=== PATIENT | male | born 1945 | race Caucasian/White ===

== ENCOUNTER 2016-07-15 14:07 | Emergency (ER) | payer MEDICARE ==
--- NOTE | 2016-07-15 15:23 | ER Document Report ---
ED Medical Screen (RME) - General Chief Complaint: Abdominal Pain Stated Complaint: LEFT ABDOMINAL PAIN Notes: This 71-year-old male patient brought to emergency room for abdominal pain. He first had onset just after midnight this a.m., family called 911, then declined transport. They gave him a laxative. He seemed to be better for a while, but his pain returned about 1 PM today. While here in the emergency room he had a large bowel movement but that did not seem to change his discomfort. He is complaining of pain in his left upper quadrant abdomen. He did suffer a significant stroke in 2010 and has developed a seizure disorder secondary to that. reports that he does not drink water as often as she would like him to. I have greeted and performed a rapid initial assessment of this patient. A comprehensive ED assessment and evaluation of the patient, analysis of test results and completion of the medical decision making process will be conducted by additional ED providers. TRAVEL OUTSIDE OF THE [place] IN LAST 30 DAYS: No - Related Data Allergies/Adverse Reactions: No Known Allergies Allergy (Verified 07/15/16 14:49) Home Medications: Current Home Medications Amitriptyline HCl [Elavil 10 Mg Tablet] 10 mg PO DAILY 07/15/16 [History] Aspirin [Aspirin EC] 81 mg PO DAILY 07/15/16 [History] Atorvastatin Calcium 40 mg PO DAILY 07/15/16 [History] Baclofen [Baclofen 10 mg Tablet] 10 mg PO BID 07/15/16 [History] Fluoxetine HCl 20 mg PO QAM 07/15/16 [History] Lamotrigine [Lamotrigine ER] 300 mg PO DAILY 07/15/16 [History] Lisinopril 10 mg PO DAILY 07/15/16 [History] Past Medical History - Past Medical History Cardiac Medical History: Reports: Hx Hypercholesterolemia, Hx Hypertension Pulmonary Medical History: Denies: Hx Tuberculosis Neurological Medical History: Reports: Hx Cerebrovascular Accident - 2010 Left MCA infarct, Hx Migraine, Hx Seizures Renal/ Medical History: Denies: Hx Peritoneal Dialysis GI Medical History: Reports: Hx Gastroesophageal Reflux Disease Psychiatric Medical History: Reports: Hx Depression Past Surgical History: Reports: Hx Appendectomy, Hx Orthopedic Surgery - Immunizations Hx Diphtheria, Pertussis, Tetanus Vaccination: Yes Physical Exam - Vital signs Vitals: Temp Pulse Resp BP Pulse Ox 98.4 F 70 18 111/71 100 07/15/16 14:52 07/15/16 14:52 07/15/16 14:52 07/15/16 14:52 07/15/16 14:52 Course - Vital Signs Vital signs: Temp Pulse Resp BP Pulse Ox 98.4 F 70 18 111/71 100 07/15/16 14:52 07/15/16 14:52 07/15/16 14:52 07/15/16 14:52 07/15/16 14:52
[2016-07-15 15:56] LABS: APPEARANCE,URINE CLEAR; BILIRUBIN,URINE NEGATIVE (NEGATIVE); GLUCOSE, URINE NEGATIVE (NEGATIVE); KETONES,URINE NEGATIVE (NEGATIVE); LEUKOCYTE ESTERASE,URINE NEGATIVE (NEGATIVE); NITRITE,URINE NEGATIVE (NEGATIVE); PROTEIN,URINE NEGATIVE (NEGATIVE); URINE SPECIFIC GRAVITY 1.014; UROBILINOGEN,URINE NEGATIVE mg/dL (<2.0)
[2016-07-15 16:19] LABS: ABSOLUTE BASOPHILS # (AUTO) 0.1 10^3/uL (0.0-0.2); ABSOLUTE EOSINOPHILS # (AUTO) 0.2 10^3/uL (0.0-0.6); ABSOLUTE MONOCYTES (AUTO) 1.1 10^3/uL (0.1-1.4); ABSOLUTE NEUT (AUTO) 9.2 10^3/uL (1.7-8.2); EOSINOPHILS % (AUTO) 1.3 % (0-6); HEMATOCRIT 41.3 % (37.9-51.0); HEMOGLOBIN 13.8 g/dL (13.5-17.0); HGB HCT DIFFERENCE 0.1; LYMPHOCYTES % (AUTO) 16.2 % (13-45); MEAN CORPUSCULAR HEMOGLOBIN 32.2 pg (27.0-33.4); MEAN CORPUSCULAR HGB CONC 33.6 g/dL (32.0-36.0); MEAN CORPUSCULAR VOLUME 96 fl (80-97); MONOCYTES % (AUTO) 8.4 % (3-13); RED CELL DISTRIBUTION WIDTH 13.4 % (11.5-14.0); SEGMENTED NEUTROPHILS % (AUTO) 73.1 % (42-78); WHITE BLOOD COUNT 12.6 10^3/uL (4.0-10.5)
--- NOTE | 2016-07-15 16:32 | ER Document Report ---
ED GI/ - General Chief Complaint: Abdominal Pain Stated Complaint: LEFT ABDOMINAL PAIN Mode of Arrival: Ambulatory Information source: Patient, POA - Power of Foot Tender Cannot obtain history due to: Other - Previous CVA TRAVEL OUTSIDE OF THE [place] IN LAST 30 DAYS: No - HPI Notes: 07/15/16 16:29 Patient's here with his at the bedside. The patient has had a prior CVA and is unable to speak due to prior CVA. History is obtained by his . She states that over the last few days he's been holding the left side of his abdomen and she is concerned that he is having pain in this area. He had a bowel movement here with no change in his pain. Said no complaints of chest pain from what she can tell. He had no vomiting. No fever. No change in his urine. And acting normal otherwise. No rashes. No other known complaints. - Related Data Allergies/Adverse Reactions: No Known Allergies Allergy (Verified 07/15/16 14:49) Home Medications: Current Home Medications Amitriptyline HCl [Elavil 10 Mg Tablet] 10 mg PO DAILY 07/15/16 [History] Aspirin [Aspirin EC] 81 mg PO DAILY 07/15/16 [History] Atorvastatin Calcium 40 mg PO DAILY 07/15/16 [History] Baclofen [Baclofen 10 mg Tablet] 10 mg PO BID 07/15/16 [History] Fluoxetine HCl 20 mg PO QAM 07/15/16 [History] Lamotrigine [Lamotrigine ER] 300 mg PO DAILY 07/15/16 [History] Lisinopril 10 mg PO DAILY 07/15/16 [History] Past Medical History - Social History Smoking Status: Unknown if Ever Smoked Family History: Reviewed & Not Pertinent, CVA Patient has suicidal ideation: No Patient has homicidal ideation: No - Past Medical History Cardiac Medical History: Reports: Hx Hypercholesterolemia, Hx Hypertension Pulmonary Medical History: Denies: Hx Tuberculosis Neurological Medical History: Reports: Hx Cerebrovascular Accident - 2011 Left MCA infarct, Hx Migraine, Hx Seizures Renal/ Medical History: Denies: Hx Peritoneal Dialysis GI Medical History: Reports: Hx Gastroesophageal Reflux Disease Psychiatric Medical History: Reports: Hx Depression Past Surgical History: Reports: Hx Appendectomy, Hx Orthopedic Surgery - Immunizations Hx Diphtheria, Pertussis, Tetanus Vaccination: Yes Hx Pneumococcal Vaccination: 04/12/10 Review of Systems - Review of Systems -: Yes ROS unobtainable due to patient's medical condition Physical Exam - Vital signs Vitals: Temp Pulse Resp BP Pulse Ox 98.4 F 70 18 111/71 100 07/15/16 14:52 07/15/16 14:52 07/15/16 14:52 07/15/16 14:52 07/15/16 14:52 - General General appearance: Appears well, Alert - HEENT Head: Normocephalic, Atraumatic Eyes: Normal Conjunctiva: Normal Pupils: PERRL Ears: Normal Mouth/Lips: Normal Mucous membranes: Normal Pharynx: Normal Neck: Normal - Respiratory Respiratory status: No respiratory distress Breath sounds: Normal - Cardiovascular Rhythm: Regular Heart sounds: Normal auscultation Murmur: No - Abdominal Inspection: Normal Distension: No distension Bowel sounds: Normal Tenderness: Nontender Organomegaly: No organomegaly - Back Back: Normal, Nontender - Extremities General upper extremity: Normal inspection, Nontender, Normal color, Normal ROM , Normal temperature General lower extremity: Normal inspection, Nontender, Normal color, Normal ROM , Normal temperature, Normal weight bearing. No: Larissa's sign - Neurological Notes: Treatment prior stroke and right-sided weakness secondary to prior stroke. The patient is noted have aphasia. - Psychological Associated symptoms: Normal affect, Normal mood - Skin Skin Temperature: Warm Skin Moisture: Dry Skin Color: Normal Course - Re-evaluation Re-evalutation: 07/15/16 17:57 Patient is nontoxic appearing with stable vitals. Again the patient's had a prior stroke therefore it is difficult for him to verbalize anything. was concerned these been grabbing the left side of his abdomen when make sure nothing bad was going on. The patient has a benign exam at this time. EKG is unremarkable, troponin is negative, labs are unremarkable, urine shows no sign of infection, chest x-ray normal, CT abdomen and pelvis shows no acute abnormality. This point the patient can be discharged home with instructions to follow-up with his primary care doctor the next stable appointment, sooner if getting worse in anyway. The patient's emergency department workup and current diagnosis were explained to the patient and or family. Follow-up instructions were provided. Medications if prescribed were discussed. Instructions for when to return to the emergency department including specific worrisome symptoms were discussed with the patient and/or family. - Vital Signs Vital signs: Temp Pulse Resp BP Pulse Ox 98.4 F 62 16 109/59 L 98 07/15/16 14:52 07/15/16 17:40 07/15/16 17:40 07/15/16 17:40 07/15/16 17:40 - Laboratory Result Diagrams: 07/15/16 16:10 07/15/16 16:10 Laboratory results interpreted by me: 07/15/16 07/15/16 07/15/16 15:32 16:10 16:10 WBC 12.6 H RBC 4.30 L Absolute Neutrophils 9.2 H Lipase 362.0 H Urine Blood SMALL H - Diagnostic Test Radiology reviewed: Image reviewed, Reports reviewed - Acute abdominal series unremarkable, CT abdomen and pelvis with IV contrast negative. - EKG Interpretation by Me EKG shows normal: Sinus rhythm, Intervals, QRS Complexes, ST-T Waves Rate: Normal When compared to previous EKG there are: No significant change Discharge - Discharge Clinical Impression: Abdominal pain Qualifiers: Abdominal location: unspecified location Qualified Code(s): R10.9 - Unspecified abdominal pain Disposition: HOME, SELF-CARE Instructions: Abdominal Pain ([facility]) Additional Instructions: Follow-up with his doctor for recheck. Follow-up sooner for increased pain, fever, persistent vomiting, or any further concerns.
[2016-07-15 16:33] LABS: ALANINE AMINOTRANSFERASE 31 U/L (21-72); ALBUMIN 3.8 g/dL (3.5-5.0); ALKALINE PHOSPHATASE 83 U/L (38-126); ANION GAP 11 (5-19); ASPARTATE AMINO TRANSFERASE 23 U/L (17-59); BILIRUBIN,DIRECT 0.2 mg/dL (0.0-0.4); BILIRUBIN,TOTAL 0.5 mg/dL (0.2-1.3); BLOOD UREA NITROGEN 18 mg/dL (7-20); CALCIUM 9.3 mg/dL (8.4-10.2); CARBON DIOXIDE 30 mmol/L (22-30); CHLORIDE 103 mmol/L (98-107); CREATININE RESULT 1.08 mg/dL (0.52-1.25); GLUCOSE 88 mg/dL (75-110); POTASSIUM 4.1 mmol/L (3.6-5.0); SODIUM 144.2 mmol/L (137-145); TOTAL PROTEIN 6.5 g/dL (6.3-8.2)
[2016-07-15 17:41] VITALS: BP 109/59
--- NOTE | 2016-07-16 15:41 | EKG REPORT ---
SEVERITY:- OTHERWISE NORMAL ECG - SINUS RHYTHM BORDERLINE LEFT AXIS DEVIATION : Confirmed by: Martha Posey MD 16-Jul-2016 15:40:40
== END 2016-07-15 18:23 | disposition home or self-care (01) ==
LOC: ER 14:07
DX: R10.9 Unspecified abdominal pain (principal); E78.00 Pure hypercholesterolemia, unspecified; I10 Essential (primary) hypertension; K21.9 Gastro-esophageal reflux disease without esophagitis; I69.320 Aphasia following cerebral infarction; I69.351 Hemiplegia and hemiparesis following cerebral infarction affecting right dominant side; Z79.82 Long term (current) use of aspirin
CPT/HCPCS: 36415; 74022; 74177; 80053; 81001; 83605; 83690; 84484; 85025; 93005; 93010; 99284

== ENCOUNTER 2016-07-21 00:25 | Observation (INO) | payer MEDICARE ==
--- NOTE | 2016-07-21 00:54 | ER Document Report ---
ED General - General Stated Complaint: ABDOMINAL DISCOMFORT Time seen by provider: 00:54 Mode of Arrival: Medic Information source: Patient, Relative TRAVEL OUTSIDE OF THE [place] IN LAST 30 DAYS: No - HPI Notes: Patient is a 71-year-old male presents to the emergency department with report of left lower quadrant intermittent abdominal pain is half the last 2 weeks. The patient has a previous history of a CVA 2010 with a dense right hemiparesis and expressive aphasia. The patient was seen previously on 07/15/16 with the same left lower quadrant crampy abdominal pain and had a negative CT scan and otherwise benign blood work. The patient does not drink fluids much, and is prone to constipation. Family and intermittently gives him Dulcolax without much response. There's been no lethargy or fever or vomiting. Patient also reports a headache intermittently, and family is concerned about a another CVA, although they deny any change in his mental status for expressive aphasia over right hemiparesthesias. No skin breakdown. - Related Data Allergies/Adverse Reactions: No Known Allergies Allergy (Verified 07/15/16 14:49) Past Medical History - General Cannot obtain history due to: Other - Expressive aphasia - Social History Smoking Status: Never Smoker Frequency of alcohol use: None Drug Abuse: None Lives with: Family Family History: Reviewed & Not Pertinent, CVA - Past Medical History Cardiac Medical History: Reports: Hx Hypercholesterolemia, Hx Hypertension Pulmonary Medical History: Denies: Hx Tuberculosis Neurological Medical History: Reports: Hx Cerebrovascular Accident - 2010 Left MCA infarct, Hx Migraine, Hx Seizures Renal/ Medical History: Denies: Hx Peritoneal Dialysis GI Medical History: Reports: Hx Gastroesophageal Reflux Disease Psychiatric Medical History: Reports: Hx Depression Past Surgical History: Reports: Hx Appendectomy, Hx Orthopedic Surgery - Immunizations Hx Diphtheria, Pertussis, Tetanus Vaccination: Yes Hx Pneumococcal Vaccination: 04/12/10 Review of Systems - Review of Systems Notes: REVIEW OF SYSTEMS: CONSTITUTIONAL : Denies fever, chills, or sweats. Denies recent illness. EENT: Denies eye, ear, throat, or mouth pain or symptoms. Denies nasal or sinus congestion or discharge. Denies throat, tongue, or mouth swelling or difficulty swallowing. CARDIOVASCULAR: Denies chest pain. Denies palpitations or racing or irregular heart beat. Denies ankle edema. RESPIRATORY: Denies cough, cold, or chest congestion. Denies shortness of breath, difficulty breathing, or wheezing. GASTROINTESTINAL: Denies distention. Denies nausea, vomiting, or diarrhea. Denies blood in vomitus, stools, or per rectum. Denies black, tarry stools. GENITOURINARY: Denies difficulty urinating, painful urination, burning, frequency, blood in urine, or discharge. MUSCULOSKELETAL: Denies back or neck pain or stiffness. Denies joint pain or swelling. SKIN: Denies rash, lesions or sores. HEMATOLOGIC : Denies easy bruising or bleeding. LYMPHATIC: Denies swollen, enlarged glands. NEUROLOGICAL: Denies confusion or altered mental status. Denies passing out or loss of consciousness. Denies dizziness or lightheadedness. Denies new sensory loss, numbness, or tingling. Denies seizures. PSYCHIATRIC: Denies anxiety or stress. Denies depression, suicidal ideation, or homicidal ideation. ALL OTHER SYSTEMS REVIEWED AND. Dictation was performed using [id number] voice recognition software Physical Exam - Vital signs Vitals: Resp Pulse Ox 15 98 07/21/16 02:15 07/21/16 02:15 - Notes Notes: PHYSICAL EXAMINATION: GENERAL: Well-appearing, well-nourished and in no acute distress. HEAD: Atraumatic, normocephalic. Localizes pain occipital region. No erythema. EYES: Pupils equal round and reactive to light, extraocular movements intact, sclera anicteric, conjunctiva are normal. ENT: Nares patent, oropharynx clear without exudates. Moist mucous membranes. NECK: Normal range of motion, supple without lymphadenopathy LUNGS: Breath sounds clear to auscultation bilaterally and equal. No wheezes rales or rhonchi. HEART: Regular rate and rhythm without murmurs ABDOMEN: No guarding, no rebound. No masses appreciated. tender over the midepigastric to left mid abdominal region. Genitourinary exam. Testicles descended and nontender. Patient circumcised is no discharge. Inguinal rings may be minimally open bilaterally, but there is no evidence for incarcerated hernia or any tenderness to that location. Musculoskeletal: Normal range of motion, no pitting or edema. No cyanosis. NEUROLOGICAL: R hemiparesis with aphasia, chronic. PSYCH: Normal mood, normal affect. SKIN: Warm, Dry, normal turgor, no rashes or lesions noted. Course - Re-evaluation Re-evalutation: 07/21/16 02:41 Amylase and lipase elevated. Lipase was 300 on 07/15/16. With continued and worsening pain, the lipase today is greater than 1000. Patient has normal bilirubin and CT scan on 07/15/16 showed no pancreatic inflammation or other abnormality. Patient is a nondrinker. Previously patient had a G-tube after his stroke in 2010. He currently does not have a G-tube. Question medication interaction versus gastritis with secondary pancreatic inflammation. 07/21/16 03:47 Discussion was undertaken with Dr. Peacock, and he agreed to admit the patient for further evaluation and management. Right upper quadrant abdominal ultrasound was ordered. Patient was kept nothing by mouth and basal rate IV fluids were ordered. - Vital Signs Vital signs: Temp Pulse Resp BP Pulse Ox 15 98 07/21/16 02:15 07/21/16 02:15 - Laboratory Result Diagrams: 07/21/16 01:30 07/21/16 01:30 Laboratory results interpreted by me: 07/21/16 07/21/16 07/21/16 01:30 01:30 01:30 RBC 3.97 L Hgb 13.0 L Carbon Dioxide 32 H Amylase 201 H Lipase 1090.1 H Discharge - Discharge Clinical Impression: Abdominal pain Qualifiers: Abdominal location: epigastric Qualified Code(s): R10.13 - Epigastric pain Pancreatitis Qualifiers: Chronicity: acute Pancreatitis type: other Acute pancreatitis complication: unspecified Qualified Code(s): K85.80 - Other acute pancreatitis without necrosis or infection Disposition: ADMITTED INPATIENT Admitting Provider: Hospitalist Unit Admitted: Telemetry Referrals: ZULEIKA AGRAWAL PA-C [Primary Care Provider] - Follow up as needed
[2016-07-21 02:02] LABS: APPEARANCE,URINE CLEAR; BILIRUBIN,URINE NEGATIVE (NEGATIVE); GLUCOSE, URINE NEGATIVE (NEGATIVE); KETONES,URINE NEGATIVE (NEGATIVE); LEUKOCYTE ESTERASE,URINE NEGATIVE (NEGATIVE); NITRITE,URINE NEGATIVE (NEGATIVE); PROTEIN,URINE NEGATIVE (NEGATIVE); URINE SPECIFIC GRAVITY 1.005; UROBILINOGEN,URINE NEGATIVE mg/dL (<2.0)
[2016-07-21 02:04] LABS: ABSOLUTE BASOPHILS # (AUTO) 0.1 10^3/uL (0.0-0.2); ABSOLUTE EOSINOPHILS # (AUTO) 0.2 10^3/uL (0.0-0.6); ABSOLUTE LYMPHOCYTES (AUTO) 2.4 10^3/uL (0.5-4.7); ABSOLUTE MONOCYTES (AUTO) 0.8 10^3/uL (0.1-1.4); ABSOLUTE NEUT (AUTO) 5.4 10^3/uL (1.7-8.2); BASOPHILS % (AUTO) 1.3 % (0-2); EOSINOPHILS % (AUTO) 1.9 % (0-6); HEMATOCRIT 38.1 % (37.9-51.0); HGB HCT DIFFERENCE 0.9; LYMPHOCYTES % (AUTO) 26.9 % (13-45); MEAN CORPUSCULAR HEMOGLOBIN 32.6 pg (27.0-33.4); MEAN CORPUSCULAR VOLUME 96 fl (80-97); MONOCYTES % (AUTO) 8.8 % (3-13); RED BLOOD COUNT 3.97 10^6/uL (4.35-5.55); RED CELL DISTRIBUTION WIDTH 13.3 % (11.5-14.0); SEGMENTED NEUTROPHILS % (AUTO) 61.1 % (42-78); WHITE BLOOD COUNT 8.8 10^3/uL (4.0-10.5)
[2016-07-21 02:05] LABS: ALANINE AMINOTRANSFERASE 36 U/L (21-72); ALBUMIN 3.8 g/dL (3.5-5.0); ALKALINE PHOSPHATASE 83 U/L (38-126); ANION GAP 10 (5-19); ASPARTATE AMINO TRANSFERASE 27 U/L (17-59); BILIRUBIN,DIRECT 0.3 mg/dL (0.0-0.4); BILIRUBIN,TOTAL 0.4 mg/dL (0.2-1.3); BLOOD UREA NITROGEN 19 mg/dL (7-20); CALCIUM 9.2 mg/dL (8.4-10.2); CARBON DIOXIDE 32 mmol/L (22-30); CHLORIDE 103 mmol/L (98-107); CREATININE RESULT 0.94 mg/dL (0.52-1.25); GLUCOSE 94 mg/dL (75-110); LIPASE 1090.1 U/L (23-300); POTASSIUM 4.4 mmol/L (3.6-5.0); SODIUM 144.6 mmol/L (137-145); TOTAL PROTEIN 6.6 g/dL (6.3-8.2)
[2016-07-21] MEDS ORDERED: POTASSI CL 20 MEQ/D5-1/2NS 1L 1,000 ML IV ONE (03:28)
[2016-07-21] MEDS ORDERED: MAGNESIUM HYDROXIDE SUSP 30 ML UDCUP PO PRN (07:23)
[2016-07-21] MEDS ORDERED: DEXTROSE 5%-1/2 NORMAL SALINE 1,000 ML IV PRN (07:23)
[2016-07-21] MEDS ORDERED: ACETAMINOPHEN 325 MG TABLET PO PRN (07:23)
[2016-07-21] MEDS ORDERED: ENOXAPARIN SODIUM INJ 40 MG/0.4 ML DISP.SYRIN SUBCUT SCH (08:00)
[2016-07-21] MEDS ORDERED: FLUOXETINE HCL 20 MG CAPSULE PO SCH (08:00)
[2016-07-21 08:19] LABS: ADD ON TESTING BLD IN LAB ACKNOWLEDGE
[2016-07-21] MEDS ORDERED: MORPHINE SULFATE 10 MG/ML INJ IV PRN (08:25)
--- NOTE | 2016-07-21 08:27 | PDOC H&P ---
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 Patient has been discussed with emergency room physician who evaluated the patient. and [id number] are present at his side, with his approval. Patient has expressive aphasia and provides essentially all communication and information. He is awake alert and interacts appropriately with his surroundings. Was seen in the emergency room on the fifth of this month for evaluation of mild to moderate intensity cramping mostly left lower quadrant abdominal pain. Unremarkable CT scan of the abdomen and pelvis at that time. Discharged home from the emergency room. Returns now with continuation of above symptoms, which have been present for approximately 2 weeks. Pain increases with certain movements. No prior such episodes. He's had nausea but no vomiting. No fever or chills. Mild occasional dysuria. No diarrhea. No history of pancreatitis. No alcohol tobacco or illicit drug use. Compliant with medications. No recent change in same.. Laboratory results are listed in [employer] and are reviewed. X-ray summary results are listed below, with full report(s) reviewed. . Social history/personal habits: . 2 children. Retired. Allergies/adverse reactions NKDA. Home medications are reviewed by bottle review and discussion with . Home medications initially autopopulated into [employer] may not accurately reflect patient's true medications, dosages, and/or frequencies. generation technologist to reconcile medications. REVIEW OF SYSTEMS: Constitutional: No fever or chills. Eyes: Wears glasses. ENT: No swallowing problems or complaints. No hearing problems or complaints. Pulmonary: No current complaints. Cardiovascular: No current complaints, including chest pain. Gastrointestinal: See history and present illness. Skin: No current complaints, including rashes. Hematologic: Easy bruising. Neurologic: See history and present illness. Musculoskeletal: No current complaints, including painful joints. Psychiatric: Anxiety depression at times. Endocrine: No current complaints, including polyuria. Genitourinary: No current complaints, including dysuria. PHYSICAL EXAMINATION: 5 feet 7 inches tall. 61.2 kg. BMI 21.1 kg/m. Blood pressure 151/76. Pulse 57 and regular. 98 percent saturation on room air. Respirations are 16 and unlabored. Temperature 97.9. Thin otherwise well-nourished male appearing perhaps a bit younger than his stated age. Pleasant awake alert and cooperative. No obvious distress other than somewhat anxious. Skin is warm and dry. No grossly obvious evidence of rash in areas of skin examined. No subcutaneous nodules palpated. ENT: Hearing grossly normal to normal conversation. Tongue midline on protrusion pink and slightly tacky. Eyes: No scleral icterus. Pupils equal and reactive to light at 4 mm. [place] conjunctivae. Neck is supple and nontender to gentle active range of motion and palpation. Midline trachea. No palpable thyroid nodule mass enlargement or tenderness. Lymphatic: No palpable cervical or clavicular nodes. Neck and lymphatic exams limited by patient body habitus. Psychiatric: Difficult to determine due to his expressive aphasia, but again, patient does interact appropriately with his surroundings. Lungs: Auscultation reveals clear and equal breath sounds bilaterally. No use of accessory respiratory muscles. Cardiovascular: Heart regular rate and rhythm, without gallop murmur or rub. No carotid or abdominal aortic bruits. No ankle or pedal edema. Faintly palpable dorsalis pedis pulses. Abdomen: soft, , slightly distended with positive bowel sounds. Scant left lower quadrant abdominal discomfort to palpation. Certainly no evidence of guarding or peritoneal signs. Unable to adequately evaluate abdomen for masses or organomegaly due to distention. Extremities: Feet are warm and dry. No calf tenderness to compression. No grossly obvious visual evidence of calf swelling. Gentle manipulation of lower extremities fails to reveal any obvious evidence of injury or instability to knees hips or ankles. Neurologic: Moves left upper extremity grossly normally; seems to be a bit of flexion contracture involving his right upper extremity; strength not tested. Patellar reflexes absent. Absent Babinski. Light touch can't be adequately determined due to his expressive aphasia. Dorsiflexion of feet 5 / 5 and symmetric. Plantarflexion of left foot 5 over 5; 4 over 5 on the right. Past Medical History Cardiac Medical History: Reports: Hyperlipidema, Hypertension Denies: Congestive Heart Failure, DVT, Myocardial Infarction, Pulmonary Embolism Pulmonary Medical History: Denies: Asthma, Chronic Obstructive Pulmonary Disease (COPD), Tuberculosis Neurological Medical History: Reports: Ischemic CVA, Migraine, Seizures - Has been "some time" since his last seizure. Denies: Hemorrhagic CVA Endocrine Medical History: Denies: Diabetes Mellitus Type 1, Diabetes Mellitus Type 2, Hyperthyroidism, Hypothyroidism Renal/ Medical History: Reports: None GI Medical History: Denies: Cirrhosis, Hepatitis, Peptic Ulcer Disease Musculoskeltal Medical History: Reports: None Skin Medical History: Reports: None Psychiatric Medical History: Reports: Depression, General Anxiety Disorder Denies: Alcohol Dependency, Substance Abuse, Tobacco Dependency Hematology: Reports: Other - Easy bruising Infectious Medical History: Denies: Hepatitis B, Hepatitis C Past Surgical History Past Surgical History: Reports: Appendectomy, Orthopedic Surgery Social History Information Source: Relative, Emergency Med Personnel, [facility] Records Lives with: Spouse/Significant other Smoking Status: Never Smoker Frequency of Alcohol Use: None Hx Recreational Drug Use: No Drugs: None Hx Prescription Drug Abuse: No - Advance Directive Resuscitation Status: Full Code Surrogate healthcare decision maker:: Family History Family History: Reviewed & Not Pertinent, CVA Parental Family History Reviewed: Yes Children Family History Reviewed: Yes Sibling(s) Family History Reviewed.: Yes Medication/Allergy Home Medications: RX: Amitriptyline HCl [Elavil 10 mg Tablet] 10 mg PO QHS 07/21/16 RX: Aspirin [Ecotrin 81 mg EC Tablet] 81 mg PO DAILY 07/21/16 RX: Atorvastatin Calcium [Lipitor 40 mg Tablet] 40 mg PO DAILY 07/21/16 RX: Baclofen [Baclofen 10 mg Tablet] 10 mg PO BID 07/21/16 RX: Cetirizine HCl [Zyrtec 10 mg Tablet] 10 mg PO DAILYP PRN 07/21/16 RX: Fluoxetine HCl [Prozac 20 mg Capsule] 20 mg PO QAM 07/21/16 RX: Lamotrigine [Lamictal Xr] 300 mg PO DAILY 07/21/16 RX: Lisinopril [Prinivil 10 mg Tablet] 10 mg PO DAILY 07/21/16 RX: Ranitidine HCl [Zantac 150 mg Tablet] 150 mg PO BIDP PRN 07/21/16 Allergies/Adverse Reactions: No Known Allergies Allergy (Verified 07/21/16 05:13) Physical Exam Vital Signs: Temp Pulse Resp BP Pulse Ox 16 151/76 H 99 07/21/16 06:01 07/21/16 06:00 07/21/16 06:01 Results Impressions: Head CT 07/21/16 01:08 IMPRESSION: No interval change from the previous study. Old left MCA infarct appears stable. CHRONIC CHANGES OF ATROPHY AND MICROVASCULAR ISCHEMIA. NO ACUTE PROCESS. Acute Abdomen Series 07/21/16 01:09 IMPRESSION: NO RADIOGRAPHIC EVIDENCE FOR ACUTE ABDOMINAL DISEASE. Abdomen Ultrasound 07/21/16 03:18 IMPRESSION: Somewhat limited study as noted above. No significant intra- abdominal abnormalities were identified. Assessment & Plan - Diagnosis (1) Pancreatitis Qualifiers: Chronicity: acute Pancreatitis type: unspecified pancreatitis type Acute pancreatitis complication: unspecified Qualified Code(s): K85.90 - Acute pancreatitis without necrosis or infection, unspecified Is this a current diagnosis for this admission?: YesPlan: Uncertain etiology. Lipid panel pending. GI consult ordered. Usual pancreatitis protocol, including ice chips only by mouth.. When necessary Medication for control of pain and nausea and vomiting. I have strongly encouraged patient not to get out of bed without notifying staff , to avoid a fall with injury. Knee high SCDs for DVT prophylaxis, along with subcutaneous Lovenox . Impression and plans were discussed with patient, and [id number], all of whom concur. Time spent in evaluation and management of patient: 61 minutes. (2) HLD (hyperlipidemia) Qualifiers: Hyperlipidemia type: unspecified Qualified Code(s): E78.5 - Hyperlipidemia, unspecified Is this a current diagnosis for this admission?: YesPlan: Lipid panel.Resume home medications as appropriate once these have been reviewed. (3) HTN (hypertension) Qualifiers: Hypertension type: essential hypertension Qualified Code(s): I10 - Essential (primary) hypertension Is this a current diagnosis for this admission?: YesPlan: Resume home medications as appropriate once these have been reviewed. (4) Seizure disorder Is this a current diagnosis for this admission?: YesPlan: Resume home medications as appropriate once these have been reviewed. Seizure precautions.
[2016-07-21 08:30] LABS: CHOLESTEROL 120.42 mg/dL (0-200); Direct HDL 53 mg/dL (>40); TRIGLYCERIDES 97 mg/dL (<150)
[2016-07-21 08:42] LABS: DIRECT LDL 45 mg/dL (<100)
[2016-07-21] MEDS ORDERED: AMITRIPTYLINE HCL 10 MG TABLET PO SCH ×2 (10:00→22:00)
[2016-07-21] MEDS ORDERED: LISINOPRIL 10 MG TABLET PO SCH ×2 (10:00→22:00)
[2016-07-21] MEDS ORDERED: BACLOFEN 10 MG TABLET PO SCH (10:00)
[2016-07-21] MEDS ORDERED: ATORVASTATIN CALCIUM 40 MG TABLET PO SCH ×2 (10:00→22:00)
[2016-07-21] MEDS ORDERED: LAMOTRIGINE 300 MG PO SCH (10:00)
[2016-07-21] MEDS ORDERED: ASPIRIN 81 MG TABLET, ENT COATED PO SCH (10:00)
[2016-07-21] MEDS ORDERED: DOCUSATE SODIUM 100 MG CAPSULE PO SCH (10:00)
[2016-07-21 16:22] VITALS: BP 105/64
--- NOTE | 2016-07-21 16:55 | PDOC DISCHARGE SUMMARY ---
General - Admit/Disc Date/PCP Admission Date/Primary Care Provider: 07/21/16 07:23 ZULEIKA AGRAWAL PA-C Discharge Date: 07/21/16 - Discharge Diagnosis (1) Pancreatitis Is this a current diagnosis for this admission?: YesSummary: Patient had mild elevation of lipase. He has had chronic constipation. Bowel rest, and IV fluids. Lipase returned to normal. He was able to tolerate clear liquids and regular food. He no further abdominal pain. We'll discharge him home. (2) Abdominal pain Is this a current diagnosis for this admission?: YesSummary: Pain is not completely resolved. Likely has component of chronic constipation regarding the pain. (3) Aphasia as late effect of cerebrovascular accident Is this a current diagnosis for this admission?: YesSummary: He has expressive aphasia from old CVA (4) HLD (hyperlipidemia) Is this a current diagnosis for this admission?: YesSummary: Continue statin therapy (5) HTN (hypertension) Is this a current diagnosis for this admission?: YesSummary: Continue present antihypertensives he is normotensive. - Additional Information Resuscitation Status: Full Code Discharge Diet: Regular Discharge Activity: Activity As Tolerated, Balance Activity w/Rest Home Medications: Amitriptyline HCl [Elavil 10 mg Tablet] 10 mg PO QHS 07/21/16 Aspirin [Ecotrin 81 mg EC Tablet] 81 mg PO DAILY 07/21/16 Atorvastatin Calcium [Lipitor 40 mg Tablet] 40 mg PO DAILY 07/21/16 Baclofen [Baclofen 10 mg Tablet] 10 mg PO BID 07/21/16 Cetirizine HCl [Zyrtec 10 mg Tablet] 10 mg PO DAILYP PRN 07/21/16 Fluoxetine HCl [Prozac 20 mg Capsule] 20 mg PO QAM 07/21/16 Lamotrigine [Lamictal Xr] 300 mg PO DAILY 07/21/16 Lisinopril [Prinivil 10 mg Tablet] 10 mg PO DAILY 07/21/16 Ranitidine HCl [Zantac 150 mg Tablet] 150 mg PO BIDP PRN 07/21/16 History of Present Illness Patient complains of: Abdominal pain History of Present Illness: ERICK ZAYAS SR is a 71 year old male with underlying hypertension , anxiety and depression, hyperlipidemia, status post stroke which has left him with right-sided hemiparesis, in particular his right upper extremity, along with expressive aphasia who presents to the emergency room for the second time in approximately a week for evaluation of above complaint. Patient has been discussed with emergency room physician who evaluated the patient. and [id number] are present at his side, with his approval. Patient has expressive aphasia and provides essentially all communication. He is awake alert and interacts appropriately with his surroundings. Was seen in the emergency room on the fifth of this month for evaluation of mild to moderate intensity cramping mostly left lower quadrant abdominal pain. Unremarkable CT scan of the abdomen and pelvis at that time. Discharged home from the emergency room. Returns now with ongoing continued symptoms, which been present for approximately 2 weeks. Pain increases with certain movements. No prior such episodes. He's had nausea but no vomiting. No fever or chills. Mild occasional dysuria. No diarrhea. No history of pancreatitis. No alcohol tobacco or illicit drug use. Compliant with medications. No recent change in same.. Hospital Course Hospital Course: Patient was referred to the hospitalist service for admission. He is admitted to telemetry overnight. This kept nothing by mouth with IV hydration. He had no further episodes of abdominal discomfort. Repeat lipase shows normal values. Patient is asking for something to eat. He was able to drink and eat without any abdominal pain. He states he wishes to be discharged home via written message. His is in agreement. He has symptoms of chronic constipation as well. Plan for this was provided. Physical Exam Vital Signs: Temp Pulse Resp BP Pulse Ox 97.8 F 55 L 21 H 105/64 99 07/21/16 13:51 07/21/16 07:23 07/21/16 13:51 07/21/16 13:51 07/21/16 13:51 General appearance: PRESENT: no acute distress, well-developed, well-nourished Head exam: PRESENT: atraumatic, normocephalic Eye exam: PRESENT: conjunctiva pink, EOMI, PERRLA. ABSENT: scleral icterus Ear exam: PRESENT: normal external ear exam Mouth exam: PRESENT: moist, tongue midline Neck exam: ABSENT: carotid bruit, JVD, lymphadenopathy, thyromegaly Respiratory exam: PRESENT: clear to auscultation gareth. ABSENT: rales, rhonchi, wheezes Cardiovascular exam: PRESENT: RRR. ABSENT: diastolic murmur, rubs, systolic murmur Pulses: PRESENT: normal carotid pulses, normal radial pulses Vascular exam: PRESENT: normal capillary refill GI/Abdominal exam: PRESENT: normal bowel sounds, soft. ABSENT: distended, guarding, mass, organolmegaly, rebound, tenderness Rectal exam: PRESENT: deferred Extremities exam: PRESENT: full ROM. ABSENT: calf tenderness, clubbing, pedal edema Musculoskeletal exam: PRESENT: ambulatory Neurological exam: PRESENT: alert, oriented to person, oriented to time, oriented to situation - expressive asphasia from old cva, aphasic Psychiatric exam: PRESENT: appropriate affect, normal mood. ABSENT: homicidal ideation, suicidal ideation Skin exam: PRESENT: dry, intact, warm. ABSENT: cyanosis, rash Results Laboratory Results: 07/21/16 11:07 Lipase 293.8 Impressions: Head CT 07/21/16 01:08 IMPRESSION: No interval change from the previous study. Old left MCA infarct appears stable. CHRONIC CHANGES OF ATROPHY AND MICROVASCULAR ISCHEMIA. NO ACUTE PROCESS. Acute Abdomen Series 07/21/16 01:09 IMPRESSION: NO RADIOGRAPHIC EVIDENCE FOR ACUTE ABDOMINAL DISEASE. Abdomen Ultrasound 07/21/16 03:18 IMPRESSION: Somewhat limited study as noted above. No significant intra- abdominal abnormalities were identified. Qualifiers PATEINT BEING DISCHARGED WITH ANY OF THE FOLLOWING DIAGNOSIS?: No Plan Discharge Plan: Home with family Time Spent: Less than 30 Minutes
== END 2016-07-21 16:23 | disposition home or self-care (01) ==
LOC: ER 00:25 → EH 04:14 → UNDOADMIN 04:14 → INTOOBSV 07:23 → EH 07:23
PROVIDERS: ADMIT Family Medicine; ATTEND Family Medicine
DX: K85.90 Acute pancreatitis without necrosis or infection, unspecified (principal); I69.320 Aphasia following cerebral infarction; I10 Essential (primary) hypertension; E78.5 Hyperlipidemia, unspecified; F41.9 Anxiety disorder, unspecified; F32.9 Major depressive disorder, single episode, unspecified; I69.351 Hemiplegia and hemiparesis following cerebral infarction affecting right dominant side; G40.909 Epilepsy, unspecified, not intractable, without status epilepticus; R10.13 Epigastric pain
CPT/HCPCS: 99285; 36415; 82150; 83690; 83735; 85025; 80053; 81001; 83605; 80061; 74022; 76705; 70450; 94799; G0378; A9270 ×4; J1650; J3480

== ENCOUNTER 2016-08-03 21:23 | Emergency (ER) | payer MEDICARE ==
[2016-08-03] MEDS ORDERED: NORMAL SALINE 1000 ML 1,000 ML IV PRN (22:23)
[2016-08-03] MEDS ORDERED: ONDANSETRON HCL INJ/PF 4 MG/2 ML SDV IV ONE (22:24)
[2016-08-03] MEDS ORDERED: MORPHINE SULFATE 10 MG/ML INJ IV PRN (22:24)
--- NOTE | 2016-08-03 22:25 | ER Document Report ---
ED General - General Chief Complaint: Abdominal Pain Stated Complaint: ABDOMINAL PAIN Time seen by provider: 22:22 Mode of Arrival: Medic Information source: Patient, Relative Notes: This is a 71-year-old man with a history of seizures, idiopathic pancreatitis, CVA in 2010 (a phasic, right hemiparesis), dyslipidemia. The patient is brought in by EMS with acute onset of abdominal pain. TRAVEL OUTSIDE OF THE [place] IN LAST 30 DAYS: No - HPI Onset: Just prior to arrival Onset/Duration: Sudden Quality of pain: Dull Severity: Moderate Pain Level: 3 Associated symptoms: denies: Chills, Fever, Nausea, Vomiting, Shortness of breath Exacerbated by: Denies Relieved by: Denies Similar symptoms previously: Yes Recently seen / treated by doctor: No - Related Data Allergies/Adverse Reactions: No Known Allergies Allergy (Verified 07/21/16 05:13) Past Medical History - General Information source: Relative - Social History Smoking Status: Never Smoker Cigarette use (# per day): No Chew tobacco use (# tins/day): No Frequency of alcohol use: None Drug Abuse: None Lives with: Family Family History: Reviewed & Not Pertinent, CVA - Past Medical History Cardiac Medical History: Reports: Hx Hypercholesterolemia, Hx Hypertension Denies: Hx Congestive Heart Failure, Hx DVT, Hx Heart Attack, Hx Pulmonary Embolism Pulmonary Medical History: Denies: Hx Asthma, Hx COPD, Hx Tuberculosis Neurological Medical History: Reports: Hx Cerebrovascular Accident - 2010 Left MCA infarct, Hx Migraine, Hx Seizures - Has been "some time" since his last seizure. Endocrine Medical History: Denies: Hx Diabetes Mellitus Type 1, Hx Diabetes Mellitus Type 2, Hx Hyperthyroidism, Hx Hypothyroidism Renal/ Medical History: Denies: Hx Peritoneal Dialysis GI Medical History: Reports: Hx Gastroesophageal Reflux Disease. Denies: Hx Cirrhosis, Hx Hepatitis Psychiatric Medical History: Reports: Hx Depression Infectious Medical History: Denies: Hx Hepatitis Past Surgical History: Reports: Hx Appendectomy, Hx Orthopedic Surgery - Immunizations Hx Diphtheria, Pertussis, Tetanus Vaccination: Yes Hx Pneumococcal Vaccination: 04/12/10 Review of Systems - Review of Systems Constitutional: denies: Chills, Fever EENT: No symptoms reported Cardiovascular: No symptoms reported Respiratory: No symptoms reported Gastrointestinal: See HPI Genitourinary: No symptoms reported Male Genitourinary: No symptoms reported Musculoskeletal: No symptoms reported Skin: No symptoms reported Hematologic/Lymphatic: No symptoms reported Neurological/Psychological: No symptoms reported Physical Exam - Vital signs Vitals: Temp Pulse Resp BP Pulse Ox 97.9 F 80 26 H 127/63 H 100 08/03/16 21:47 08/03/16 21:47 08/03/16 21:47 08/03/16 21:47 08/03/16 21:47 Notes: Physical exam: GENERAL: 71-year-old man, alert, aphasic, appears uncomfortable. HEAD: Atraumatic, normocephalic. EYES: Pupils equal round and reactive to light, extraocular movements intact, sclera anicteric, conjunctiva are normal. ENT: TMs normal, nares patent, oropharynx clear without exudates. Moist mucous membranes. NECK: Normal range of motion, supple without lymphadenopathy or JVD. LUNGS: Breath sounds clear to auscultation bilaterally and equal. No wheezes rales or rhonchi. HEART: Regular rate and rhythm without murmurs, rubs or gallops. ABDOMEN: Soft, normoactive bowel sounds. There is tenderness diffusely without any localizable area. Rectal: Stool brown. Minimal stool in vault. EXTREMITIES: Normal range of motion, no pitting or edema. No clubbing or cyanosis. NEUROLOGICAL: A phasic. Right hemiparesis. Baseline mental status as per daughter who is at the bedside. SKIN: Warm, Dry, normal turgor, no rashes or lesions noted. Course - Vital Signs Vital signs: Temp Pulse Resp BP Pulse Ox 97.9 F 80 15 138/68 H 99 08/03/16 21:47 08/03/16 21:47 08/04/16 01:39 08/04/16 01:39 08/04/16 01:39 - Laboratory Result Diagrams: 08/03/16 23:27 08/03/16 23:27 Laboratory results interpreted by me: 08/03/16 08/03/16 23:27 23:27 RBC 3.86 L Hgb 13.0 L Hct 36.9 L MCH 33.6 H Total Protein 6.1 L - Diagnostic Test Radiology reviewed: Image reviewed, Reports reviewed - CT of the abdomen shows no acute intra-abdominal process - EKG Interpretation by Me Rate: Normal Rhythm: NSR - EKG shows normal sinus rhythm Discharge - Discharge Clinical Impression: abdominal pain resolved Condition: Stable Disposition: HOME, SELF-CARE Instructions: Abdominal Pain ([facility]) Additional Instructions: Recommendations: Rest, drink plenty of fluids, continue current medicines. You up with Dr. lopez: Bring a copy of today's lab work and CT report with you when you go Return to the emergency room for any worsening abdominal pain, fever ( temperature greater than 100.5), vomiting, not tolerating fluids. Referrals: ZULEIKA LOPEZ PA-C [Primary Care Provider] - Follow up in 3-5 days
[2016-08-03 23:39] LABS: ABSOLUTE BASOPHILS # (AUTO) 0.1 10^3/uL (0.0-0.2); ABSOLUTE EOSINOPHILS # (AUTO) 0.1 10^3/uL (0.0-0.6); ABSOLUTE MONOCYTES (AUTO) 1.1 10^3/uL (0.1-1.4); ABSOLUTE NEUT (AUTO) 6.8 10^3/uL (1.7-8.2); BASOPHILS % (AUTO) 0.8 % (0-2); EOSINOPHILS % (AUTO) 1.1 % (0-6); HEMATOCRIT 36.9 % (37.9-51.0); HGB HCT DIFFERENCE 2.1; LYMPHOCYTES % (AUTO) 20.3 % (13-45); MEAN CORPUSCULAR HEMOGLOBIN 33.6 pg (27.0-33.4); MEAN CORPUSCULAR HGB CONC 35.1 g/dL (32.0-36.0); MEAN CORPUSCULAR VOLUME 96 fl (80-97); MONOCYTES % (AUTO) 10.6 % (3-13); RED BLOOD COUNT 3.86 10^6/uL (4.35-5.55); RED CELL DISTRIBUTION WIDTH 13.1 % (11.5-14.0); SEGMENTED NEUTROPHILS % (AUTO) 67.2 % (42-78); WHITE BLOOD COUNT 10.1 10^3/uL (4.0-10.5)
[2016-08-03] MEDS ORDERED: MORPHINE SULFATE 10 MG/ML INJ IV ONE (23:39)
[2016-08-03 23:54] LABS: ALANINE AMINOTRANSFERASE 40 U/L (21-72); ALBUMIN 3.9 g/dL (3.5-5.0); ALKALINE PHOSPHATASE 76 U/L (38-126); ANION GAP 12 (5-19); ASPARTATE AMINO TRANSFERASE 27 U/L (17-59); BILIRUBIN,DIRECT 0.1 mg/dL (0.0-0.4); BILIRUBIN,TOTAL 0.4 mg/dL (0.2-1.3); BLOOD UREA NITROGEN 20 mg/dL (7-20); CALCIUM 9.2 mg/dL (8.4-10.2); CARBON DIOXIDE 29 mmol/L (22-30); CHLORIDE 102 mmol/L (98-107); CREATININE RESULT 0.96 mg/dL (0.52-1.25); GLUCOSE 104 mg/dL (75-110); LIPASE 226.8 U/L (23-300); POTASSIUM 3.8 mmol/L (3.6-5.0); SODIUM 143.4 mmol/L (137-145); TOTAL PROTEIN 6.1 g/dL (6.3-8.2)
[2016-08-03 23:57] LABS: PROTHROMBIN TIME 13.6 SEC (11.4-15.4)
[2016-08-04 02:12] LABS: APPEARANCE,URINE CLEAR; BILIRUBIN,URINE NEGATIVE (NEGATIVE); GLUCOSE, URINE NEGATIVE (NEGATIVE); KETONES,URINE NEGATIVE (NEGATIVE); LEUKOCYTE ESTERASE,URINE NEGATIVE (NEGATIVE); NITRITE,URINE NEGATIVE (NEGATIVE); PROTEIN,URINE NEGATIVE (NEGATIVE); URINE SPECIFIC GRAVITY 1.016; UROBILINOGEN,URINE NEGATIVE mg/dL (<2.0)
[2016-08-04 04:02] VITALS: BP 111/64
--- NOTE | 2016-08-04 11:20 | EKG REPORT ---
SEVERITY:- NORMAL ECG - SINUS RHYTHM : Confirmed by: Ines Chatman 04-Aug-2016 11:19:31
== END 2016-08-04 04:02 | disposition home or self-care (01) ==
LOC: ER 21:23
DX: R10.9 Unspecified abdominal pain (principal); E78.00 Pure hypercholesterolemia, unspecified; I10 Essential (primary) hypertension; E78.5 Hyperlipidemia, unspecified; K21.9 Gastro-esophageal reflux disease without esophagitis; I69.951 Hemiplegia and hemiparesis following unspecified cerebrovascular disease affecting right dominant side; I69.920 Aphasia following unspecified cerebrovascular disease
CPT/HCPCS: 93005; 99284; 96361; 96374; 96375; 36415; 83690; 85025; 85610; 82272; 80053; 81001; 74177; 93010; J2270; J2405; J7030

== ENCOUNTER 2018-05-31 17:51 | Emergency (ER) | payer MEDICARE | END 2018-05-31 20:05 | disposition left against medical advice (07) | LOC: ER 17:51 | DX: Z53.21 Procedure and treatment not carried out due to patient leaving prior to being seen by health care provider (principal) ==

== ENCOUNTER 2018-06-11 21:00 | Emergency (ER) | payer MEDICARE ==
[2018-06-11] MEDS ORDERED: ONDANSETRON HCL INJ/PF 4 MG/2 ML SDV IV ONE (21:34)
[2018-06-11] MEDS ORDERED: MORPHINE SULFATE 10 MG/ML INJ IV ONE (21:34)
--- NOTE | 2018-06-11 21:41 | ER Document Report ---
ED General - General Chief Complaint: Abdominal Pain Stated Complaint: ABDOMINAL PAIN Time Seen by Provider: 06/11/18 21:27 Primary Care Provider: ZULEIKA AGRAWAL PA-C [Primary Care Provider] - Follow up as needed Notes: Patient is a 72-year-old male that comes to the emergency department for chief complaint of upper abdominal pain that started prior to arrival, he points to his epigastric area and grimaces. He is unable to speak after a severe CVA, so he cannot tell me specifics but he does point to the area when asked where he hurts. He is still eating, he has not had any vomiting, he had a normal bowel he has not had fevers or chills. No other indicated areas of pain or complaints. Past medical history includes hypertension, hyperlipidemia, CVA, on aspirin but not on a blood thinner. Family at bedside, cannot recall any abdominal surgeries. TRAVEL OUTSIDE OF THE [place] IN LAST 30 DAYS: No - Related Data Allergies/Adverse Reactions: No Known Allergies Allergy (Verified 06/11/18 21:03) Past Medical History - General Information source: Relative - Social History Smoking Status: Never Smoker Chew tobacco use (# tins/day): No Frequency of alcohol use: None Drug Abuse: None Lives with: Family Family History: Reviewed & Not Pertinent, CVA Patient has suicidal ideation: No Patient has homicidal ideation: No - Past Medical History Cardiac Medical History: Reports: Hx Hypercholesterolemia, Hx Hypertension Denies: Hx Congestive Heart Failure, Hx DVT, Hx Heart Attack, Hx Pulmonary Embolism Pulmonary Medical History: Denies: Hx Asthma, Hx COPD, Hx Tuberculosis Neurological Medical History: Reports: Hx Cerebrovascular Accident - 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 Endocrine Medical History: Denies: Hx Diabetes Mellitus Type 1, Hx Diabetes Mellitus Type 2, Hx Hyperthyroidism, Hx Hypothyroidism Renal/ Medical History: Denies: Hx Peritoneal Dialysis GI Medical History: Reports: Hx Gastroesophageal Reflux Disease. Denies: Hx Cirrhosis, Hx Hepatitis Psychiatric Medical History: Reports: Hx Depression Infectious Medical History: Denies: Hx Hepatitis Past Surgical History: Reports: Hx Appendectomy, Hx Orthopedic Surgery - Immunizations Hx Diphtheria, Pertussis, Tetanus Vaccination: Yes Hx Pneumococcal Vaccination: 04/12/10 Review of Systems - Review of Systems Constitutional: No symptoms reported EENT: No symptoms reported Cardiovascular: No symptoms reported Respiratory: No symptoms reported Gastrointestinal: See HPI Genitourinary: No symptoms reported Male Genitourinary: No symptoms reported Musculoskeletal: No symptoms reported Skin: No symptoms reported Hematologic/Lymphatic: No symptoms reported Neurological/Psychological: No symptoms reported Physical Exam - Vital signs Vitals: Temp Pulse Resp BP Pulse Ox 98.2 F 102 H 22 H 134/64 H 100 06/11/18 21:04 06/11/18 21:04 06/11/18 21:04 06/11/18 21:04 06/11/18 21:04 - Notes Notes: GENERAL: Patient sitting straight up, appears uncomfortable HEAD: Normocephalic, atraumatic. EYES: Pupils equal, round, and reactive to light. Extraocular movements intact. ENT: Oral mucosa moist, tongue midline. Oropharynx unremarkable. Airway patent. NECK: Full range of motion. Supple. Trachea midline. LUNGS: Clear to auscultation bilaterally, no wheezes, rales, or rhonchi. No respiratory distress. HEART: Tachycardia, normal rhythm, no murmur ABDOMEN: There is generalized abdominal tenderness which is very mild, no rigidity, no rebound, no guarding GENITOURINARY: Deferred EXTREMITIES: Moves all 4 extremities spontaneously. No edema, normal radial and dorsalis pedis pulses bilaterally. No cyanosis. BACK: no cervical, thoracic, lumbar midline tenderness. No saddle anesthesia, n ormal distal neurovascular exam. NEUROLOGICAL: Alert and follows directions, unable to speak SKIN: Warm, dry, normal turgor. No rashes or lesions noted. Course - Re-evaluation Re-evalutation: Patient has point to his upper abdomen as the area of pain. He does follow directions but he is unable to speak. He is alert. He is actually anxious appearing, he has tachypnea on my initial evaluation. His lungs are clear, he has no hypoxia, no fever. He communicates to me nonverbally that he does not have shortness of breath and that he does not have chest pain. He also denies flank pain. Abdomen does not show any notable tenderness, there is no guarding, incarcerated hernia, there is no evidence of torsion. CBC shows mild leukocytosis with no shift. Chemistry is unremarkable other than mild elevation of 1.3, and low glucose at 65. lipase is normal. Urinalysis does not show infection or concerning abnormality. EKG sinus rhythm with no T wave inversions or ST segment changes in consecutive leads. Troponin is negative. Chest x-ray unremarkable, no free air. Reevaluated patient, after a small amount of morphine and Zofran patient still has tachypnea. He appears more anxious than previously. Family is asking for something for him to calm down, he was given 0.25 mg IV of Ativan. After this he did not fall asleep but he became calm, cooperative, tachypnea resolved. Decision was made to perform CAT scan to rule out acute etiology of the abdomen. CT showing some retained gas and stool, no acute findings. Patient is frequently belching per family. On reevaluation he remains extremely well- appearing, he has no complaints. Family is very happy with this result, they request something for him to take for agitation/anxiety only as needed at home. Because lorazepam worked so well they request this. I explained that because of his geriatric status that he may have trouble if he takes benzodiazepines, however because he responded so well here he was provided with small prescription and he will follow-up with their provider for additional management with additional medication. Also provided with Pepcid and discussed stool softener, he takes MiraLAX at home as needed. They deny needing extra help at home, they do have home health established. Discussed return precautions, they state satisfaction and agreement with plan. - Vital Signs Vital signs: Temp Pulse Resp BP Pulse Ox 98.7 F 102 H 14 126/67 H 99 06/11/18 23:01 06/11/18 21:04 06/11/18 23:01 06/11/18 23:01 06/11/18 23:01 - Laboratory Result Diagrams: 06/11/18 21:28 06/11/18 21:28 Laboratory results interpreted by me: 06/11/18 06/11/18 06/11/18 21:28 21:28 21:44 WBC 10.7 H RBC 3.98 L Hgb 13.2 L BUN 22 H Creatinine 1.34 H Est GFR (Non-Af Amer) 52 L Glucose 65 L Urine Blood SMALL H Urine Urobilinogen 2.0 H Discharge - Discharge Clinical Impression: Anxiety Abdominal pain Qualifiers: Abdominal location: generalized Qualified Code(s): R10.84 - Generalized abdominal pain Condition: Stable Disposition: HOME, SELF-CARE Additional Instructions: His evaluation today is reassuring. No concerning abnormality's are seen on the imaging or laboratory workup. He does have some retained gas and stool, you can give him an extra dose of miralax tomorrow, give the Pepcid as prescribed. He appears to have a component of anxiety as well. You have been provided with Lorazepam to take for anxiety/agitation if necessary. Follow-up closely with his primary care provider for additional management/treatment. Return if he worsens including severe worsening pain, vomiting, fever, or any other concerning or worsening symptoms. Prescriptions: Famotidine [Pepcid 20 mg Tablet] 20 mg PO BID PRN #12 tablet PRN Reason: Lorazepam [Ativan 0.5 mg Tablet] 0.5 mg PO Q4 PRN #20 tab PRN Reason: Referrals: ZULEIKA AGRAWAL PA-C [Primary Care Provider] - Follow up as needed
[2018-06-11 21:53] LABS: ABSOLUTE BASOPHILS # (AUTO) 0.1 10^3/uL (0.0-0.2); ABSOLUTE EOSINOPHILS # (AUTO) 0.1 10^3/uL (0.0-0.6); ABSOLUTE LYMPHOCYTES (AUTO) 2.1 10^3/uL (0.5-4.7); ABSOLUTE NEUT (AUTO) 7.4 10^3/uL (1.7-8.2); BASOPHILS % (AUTO) 1.1 % (0-2); HEMATOCRIT 38.3 % (37.9-51.0); HEMOGLOBIN 13.2 g/dL (13.5-17.0); MEAN CORPUSCULAR HEMOGLOBIN 33.2 pg (27.0-33.4); MEAN CORPUSCULAR HGB CONC 34.5 g/dL (32.0-36.0); MEAN CORPUSCULAR VOLUME 96 fl (80-97); MONOCYTES % (AUTO) 9.2 % (3-13); PLATELET COUNT 234 10^3/uL (150-450); RED BLOOD COUNT 3.98 10^6/uL (4.35-5.55); RED CELL DISTRIBUTION WIDTH 13.4 % (11.5-14.0); SEGMENTED NEUTROPHILS % (AUTO) 68.7 % (42-78); TOTAL CELLS COUNTED % (AUTO) 100 %; WHITE BLOOD COUNT 10.7 10^3/uL (4.0-10.5)
[2018-06-11 22:01] LABS: APPEARANCE,URINE CLEAR; BILIRUBIN,URINE NEGATIVE (NEGATIVE); COLOR,URINE YELLOW; GLUCOSE, URINE NEGATIVE (NEGATIVE); KETONES,URINE NEGATIVE (NEGATIVE); LEUKOCYTE ESTERASE,URINE NEGATIVE (NEGATIVE); NITRITE,URINE NEGATIVE (NEGATIVE); PROTEIN,URINE NEGATIVE (NEGATIVE); URINE SPECIFIC GRAVITY 1.016
[2018-06-11 22:05] LABS: ALANINE AMINOTRANSFERASE 21 U/L (21-72); ALKALINE PHOSPHATASE 103 U/L (38-126); ANION GAP 9 (5-19); ASPARTATE AMINO TRANSFERASE 20 U/L (17-59); BILIRUBIN,DIRECT 0.2 mg/dL (0.0-0.4); BILIRUBIN,TOTAL 0.3 mg/dL (0.2-1.3); BLOOD UREA NITROGEN 22 mg/dL (7-20); CALCIUM 9.4 mg/dL (8.4-10.2); CARBON DIOXIDE 29 mmol/L (22-30); CHLORIDE 105 mmol/L (98-107); LIPASE 77.1 U/L (23-300); POTASSIUM 4.4 mmol/L (3.6-5.0); SODIUM 143.4 mmol/L (137-145); TOTAL PROTEIN 6.3 g/dL (6.3-8.2)
[2018-06-11 22:21] LABS: GLUCOSE 65 mg/dL (75-110)
[2018-06-11] MEDS ORDERED: LORAZEPAM INJ 2 MG/1 ML VIAL IV ONE (22:30)
--- NOTE | 2018-06-11 22:36 | RADIOLOGY REPORT (SQ) ---
EXAM DESCRIPTION: XR CHEST 1 VIEW COMPLETED DATE/TME: 06/11/2018 21:35 CLINICAL HISTORY: 72 years Male, lower chest, upper abd pain; free air? COMPARISON: Acute abdominal series, July 15, 2016 NUMBER OF VIEWS/TECHNIQUE: 1/AP FINDINGS: Adequate lung volume, clear parenchyma, normal cardiac silhouette, and mild deformity of the right humeral neck. Indicative of prior injury. Atherosclerotic vascular disease. IMPRESSION: No acute cardiopulmonary findings.
--- NOTE | 2018-06-11 23:08 | RADIOLOGY REPORT (SQ) ---
CT ABDOMEN PELVIS WITH IV CONTRAST HISTORY: Abdominal pain. COMPARISON: 08/03/2016 TECHNIQUE: CT scan of the abdomen and pelvis with IV contrast. This exam was performed according to our departmental dose-optimization program, which includes automated exposure control, adjustment of the mA and/or kV according to patient size and/or use of iterative reconstruction technique. FINDINGS: There is scattered atelectasis at the lung bases. No pleural or pericardial effusions are seen. There is no hiatal hernia. There is a subcentimeter hypodensity in the liver which is too small to characterize. Otherwise the liver, spleen, pancreas, gallbladder, adrenal glands, and kidneys are unremarkable. No hydronephrosis or obstructing urinary stones are identified. The pelvic organs are also unremarkable. No small bowel obstruction. The appendix is normal. There is no evidence of diverticulitis. No intraperitoneal free fluid or free air is identified. The aorta is normal caliber and contains atherosclerotic calcifications. There are mild degenerative changes of the spine. Small fat-containing left inguinal hernia is seen. IMPRESSION: No acute abdominal or pelvic pathology.
[2018-06-11 23:41] VITALS: BP 126/67
--- NOTE | 2018-06-12 22:54 | EKG REPORT ---
SEVERITY:- NORMAL ECG - SINUS RHYTHM : Confirmed by: Ines Chatman 12-Jun-2018 22:53:01
== END 2018-06-11 23:41 | disposition home or self-care (01) ==
LOC: ER 21:00
DX: R10.84 Generalized abdominal pain (principal); R10.817 Generalized abdominal tenderness; D72.829 Elevated white blood cell count, unspecified; F41.9 Anxiety disorder, unspecified; R14.2 Eructation; R00.0 Tachycardia, unspecified; R06.82 Tachypnea, not elsewhere classified; I10 Essential (primary) hypertension; Z86.73 Personal history of transient ischemic attack (TIA), and cerebral infarction without residual deficits; Z79.02 Long term (current) use of antithrombotics/antiplatelets; Z87.19 Personal history of other diseases of the digestive system; Z90.49 Acquired absence of other specified parts of digestive tract
CPT/HCPCS: 93005; 99284; 96374; 96375; 36415; 82962; 83690; 85025; 80053; 81001; 84484; 71045; 74177; 93010; J2270; J2060; J2405